=== PATIENT | female | born 1990 | race Caucasian/White ===

== ENCOUNTER 2025-02-28 12:15 | Outpatient (CLI) | payer BC | END 2025-02-28 12:16 | disposition home or self-care (01) | LOC: CSHULT 12:15 | PROVIDERS: ATTEND Physician Assistant | DX: N93.8 Other specified abnormal uterine and vaginal bleeding (principal); R93.89 Abnormal findings on diagnostic imaging of other specified body structures | CPT/HCPCS: 76856; 93976 ==